=== PATIENT | male | born 1950 | race Caucasian/White ===

== ENCOUNTER → 2019-03-02 08:44 | Day surgery (SDC) | payer MEDICARE, BC ==
--- NOTE | 2019-02-25 17:43 | HP ---
PREOPERATIVE HISTORY AND PHYSICAL: DATE OF ADMISSION: 03/02/19 SURGEON: Dr. Subramanian.* (DICTATED BY OLU MELENDEZ) PROCEDURE: Left second toe amputation. CHIEF COMPLAINT: Left second toe ulceration. HISTORY OF PRESENT ILLNESS: Mr. Muller is a 68-year-old male followed by Dr. Subramanian for years for venous stasis changes in both legs with hyperkeratosis, dislocations, and poor wound healing. His left second toe has a deformity with hammering and significant with chronic edema. There is an ulceration at the tip that is unhealing with intermittent drainage and radiographs have shown erosion at the distal phalanx. Dr. Subramanian has recommended surgical intervention and the patient would like to proceed. PAST MEDICAL HISTORY: Morbid obesity, atrial fibrillation, diabetes, hypertension, hyperlipidemia, chronic venous stasis, severe sleep apnea, dilated cardiomyopathy, pulmonary hypertension, neuropathy. PAST SURGICAL HISTORY: Polypectomy, fistulectomy, sphincterotomy, and a shoulder surgery. He denies any complications with these procedures. CURRENT MEDICATIONS: 1. OneTouch Ultra Blue test strips as directed up to 4 times daily. 2. OneTouch UltraSoft lancets use daily or as directed. 3. Metformin HCl ER 500 mg 2 tabs p.o. b.i.d. 4. Glimepiride 4 mg 1 tab p.o. daily. 5. Lovaza 1 g 1 p.o. twice daily. 6. Multi For Him 50+ one tab p.o. daily. 7. Pradaxa 150 mg 1 tab p.o. b.i.d. 8. Bisoprolol fumarate 10 mg 1 tab p.o. daily. 9. Vitamin D3 50,000 units 1 by mouth twice weekly. 10. Amlodipine besylate/benazepril hydrochloride 2.5/10 mg 1 capsule p.o. daily. ALLERGIES: PENICILLIN, AUGMENTIN, and LEVAQUIN. FAMILY HISTORY: Positive for cancer, diabetes, and heart disease. SOCIAL HISTORY: He is and lives with his spouse. 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 He was a former smoker who quit in 1982 and occasionally consumes beer now and no recreational drug use. REVIEW OF SYSTEMS: Fourteen systems were reviewed today with the patient. They are negative for fevers, chills, nausea, vomiting, shortness of breath with exertion, or chest pain with exertion. They are positive for his left second toe ulceration, swelling, and hyperkeratosis. PHYSICAL EXAMINATION GENERAL: He is a morbidly obese male, seated in exam chair, in no acute distress, with appropriate affect. VITAL SIGNS: Height 70 inches, pulse 72, weight 368 pounds, blood pressure 124/ 66. HEENT: Normocephalic, atraumatic. Hearing and vision are grossly intact, with extraocular movements intact. NECK: Body habitus is limiting, but trachea appears midline. CHEST: Unlabored breathing. Lung sounds clear to auscultation. No wheezes, rales, or rhonchi noted. CARDIO: Irregular rate and rhythm. Normal S1, S2. No murmurs appreciated. ABDOMEN: Body habitus limiting. Nontender. Bowel sounds present. MUSCULOSKELETAL: Left lower extremity: Dark pigmentation of the skin with hyperkeratosis related to venous stasis with pachydermal hyperkeratotic changes. Left second toe is clawing and broken down at the tip with a non- weeping, nonerythematous classic chronic ulcer. The entire toe is swollen with some brawny chronic edema. IMAGING: Radiographs obtained previously of the second toe show destructive changes in the distal phalanx of the second toe. ASSESSMENT: Left second toe diabetic ulcer with osteomyelitis. PLAN: Left second toe amputation with Dr. Subramanian. The patient's questions were answered and he would like to proceed. The patient will continue on oral Keflex 500 mg 3 times daily. He will stop his Pradaxa 48 hours prior to procedure. He will call with questions or concerns and follow up postoperatively. OLU MELENDEZ [id number]/[facility] #: [id number] CHRISTIE
[~2019-03-02 08:44] MED LIST: Acetaminophen TAB* 325 MG ONE; Buffered Lidocaine 1% SYRIN* 1 ML/SYRINGE INTRADERM ONE; Clindamycin 900 MG/D5W BAG(*) 900 MG/50 ML BAG IVPB ONE; Lactated Ringers 1000 ML Bag* 1,000 ML IV SCH; Lidocaine 2% PF * 5 ML VIAL ONE; Lidocaine 2% PF* 10 ML AMP ONE; Midazolam* 1 MG/ML 2 ML VIAL (2 MG) ONE; Naloxone* 0.4 MG/ML 1 ML VIAL IV PRN; Propofol* 10 MG/ML 20 ML BTL ONE
[2019-03-02 13:37] VITALS: BP 125/73
--- NOTE | 2019-03-03 03:54 | OP ---
DATE OF OPERATION: 03/02/19 - SDS DATE OF : 46 SURGEON: Parker Subramanian MD GANG WORKER: Opal Martinez PA-C PRE-OP DIAGNOSIS: Chronic osteomyelitis of the tip of the left second toe. POST-OP DIAGNOSIS: Chronic osteomyelitis of the tip of the left second toe. OPERATIVE PROCEDURE: Partial amputation, left second toe. DESCRIPTION OF PROCEDURE: The patient was taken to the operating room where transverse elliptical incision was made over the mid portion of the left second toe. We dissected proximally to the PIP joint, which was then disarticulated, the toe was sent to Pathology. Because of the patient's chronic hyperkeratotic skin disease with the diabetes. It was very hard to mobilize the skin flap, so we resected a little bit more of the proximal phalanx with the microsagittal saw. We then were able to drop the tourniquet, obtain hemostasis, irrigate thoroughly and close dorsal to plantar flaps with 3-0 Monocryl deep suture and interrupted 2-0 Prolene for the skin. Compression dressing was applied. We also replaced his Unna boot on the left calf during this procedure. [id number]/[facility] #: [id number] MTDD
== END | disposition home or self-care (01) ==
LOC: OR 08:44
PROVIDERS: ATTEND Orthopaedic Surgery
DX: M86.672 Other chronic osteomyelitis, left ankle and foot (principal); E11.621 Type 2 diabetes mellitus with foot ulcer; L97.529 Non-pressure chronic ulcer of other part of left foot with unspecified severity; Z79.84 Long term (current) use of oral hypoglycemic drugs; I10 Essential (primary) hypertension; E78.5 Hyperlipidemia, unspecified; I87.8 Other specified disorders of veins; G47.33 Obstructive sleep apnea (adult) (pediatric); I42.0 Dilated cardiomyopathy; I48.91 Unspecified atrial fibrillation; I27.20 Pulmonary hypertension, unspecified; G62.9 Polyneuropathy, unspecified; Z88.0 Allergy status to penicillin; Z88.1 Allergy status to other antibiotic agents; E11.40 Type 2 diabetes mellitus with diabetic neuropathy, unspecified; I43 Cardiomyopathy in diseases classified elsewhere
CPT/HCPCS: 88305; 88311; A9270-GY; J2001; J2250; J2704

== ENCOUNTER 2020-09-09 15:58 | Inpatient (IN) ==
[2020-09-09] MEDS ORDERED: Cefepime 1 GM in NS 0.9% 50 ML 50 ML IVPB ONE (16:53)
[2020-09-09 17:07] LABS: ABS Eosinophils 0.1 10^3/ul (0-0.6); ABS Lymphocytes 0.5 10^3/ul (1.0-4.8); ABS Monocytes 0.4 10^3/ul (0-0.8); ABS Neutrophils 2.8 10^3/ul (1.5-7.7); Eosinophil % 2.5 %; Hematocrit 37 % (42-52); Hemoglobin 12.1 g/dL (14.0-18.0); Lymphocyte % 12.8 %; Mean Corpuscular HGB Conc 33 g/dL (31-36); Mean Corpuscular Hemoglobin 31 pg (27-31); Mean Corpuscular Volume 94 fL (80-94); Mean Platelet Volume 7.5 fL (7.4-10.4); Platelet Count 155 10^3/uL (150-450); Red Blood Count 3.91 10^6 /uL (4.18-5.48); Red Cell Distribution Width 17 % (10-15); White Blood Count 3.8 10^3/uL (3.5-10.8)
[2020-09-09 17:22] LABS: Albumin 2.5 g/dL (3.2-5.2); Albumin/Globulin Ratio 0.6 (1-3); BUN/Creatinine Ratio 18.3 (8-20); C Reactive Protein 49.53 mg/L (<8.01); Calcium 8.6 mg/dL (8.6-10.3); EGFR African American 85.2 (>60); EGFR Non-African American 70.4 (>60); Globulin 4.3 g/dL (2-4); Total Bilirubin 1.3 mg/dL (0.2-1.0); Total Protein 6.8 g/dL (6.4-8.9)
[2020-09-09 17:26] LABS: Potassium 5.1 mmol/L (3.5-5.0)
[2020-09-09] MEDS ORDERED: Cefepime 1 GM IV - ED ONCE IV ONE ×2 (18:00→20:26)
[2020-09-09 20:38] LABS: TSH Ultra Thyroid Stim Horm 1.08 mcIU/mL (0.34-5.60)
[2020-09-09] MEDS ORDERED: Vancomycin 2,000 MG in NS 0.9% 500 ml BAG 500 ML IVPB ONE (21:00)
[2020-09-09] MEDS ORDERED: Vancomycin per Pharmacy 1 EA NOTE FOLLOW UP SCH (21:00)
[2020-09-09] MEDS ORDERED: Furosemide 40 mg/4 ml IV VIAL IV ONE (21:28)
[2020-09-09] MEDS: CMC:Dabigatran 150 mg CAP (NF) PO SCH (22:58)
[2020-09-10] MEDS ORDERED: Calcium Carb (TUMS) 500 mg CHEW TAB PO PRN (00:42)
[2020-09-10 06:09] LABS: ABS Eosinophils 0.1 10^3/ul (0-0.6); ABS Lymphocytes 0.6 10^3/ul (1.0-4.8); ABS Monocytes 0.5 10^3/ul (0-0.8); ABS Neutrophils 2.2 10^3/ul (1.5-7.7); Eosinophil % 2.8 %; Hematocrit 35 % (42-52); Hemoglobin 11.9 g/dL (14.0-18.0); Lymphocyte % 17.7 %; Mean Corpuscular HGB Conc 34 g/dL (31-36); Mean Corpuscular Hemoglobin 32 pg (27-31); Mean Corpuscular Volume 94 fL (80-94); Mean Platelet Volume 7.7 fL (7.4-10.4); Nucleated Red Blood Cells % 0.1; Platelet Count 148 10^3/uL (150-450); Red Blood Count 3.69 10^6 /uL (4.18-5.48); Red Cell Distribution Width 17 % (10-15); White Blood Count 3.4 10^3/uL (3.5-10.8)
[2020-09-10 06:31] LABS: Albumin 2.4 g/dL (3.2-5.2); Albumin/Globulin Ratio 0.6 (1-3); BUN/Creatinine Ratio 20.4 (8-20); Calcium 8.4 mg/dL (8.6-10.3); EGFR African American 91.2 (>60); EGFR Non-African American 75.4 (>60); Globulin 4.2 g/dL (2-4); Potassium 4.6 mmol/L (3.5-5.0); Total Bilirubin 1.3 mg/dL (0.2-1.0); Total Protein 6.6 g/dL (6.4-8.9)
[2020-09-10 07:10] LABS: Activated Partial Thrombo Time 53.9 seconds (26.0-38.0); INR 2.23 (0.82-1.09)
[2020-09-10] MEDS: CMC:Dabigatran 150 mg CAP (NF) PO SCH ×2 (09:32→21:04)
[2020-09-10] MEDS: Cefepime 2 GM in Dextrose 2 GM/50 ML BAG IV SCH ×2 (09:34→21:05)
[2020-09-10] MEDS ORDERED: Vancomycin 1,250 MG in NS 0.9% 250 ml 250 ML IVPB SCH (11:00)
[2020-09-10] MEDS: Furosemide 40 mg/4 ml IV VIAL IV SCH (11:07)
[2020-09-10] MEDS: Ampicillin ADVAN 2 GM in NS 0.9% 100 ml BAG 100 ML IVPB SCH ×2 (17:36→22:05)
[2020-09-10] MEDS: metroNIDAZOLE IV 500 MG/100ML 500 MG/100 ML BAG IVPB SCH (18:16)
[2020-09-11] MEDS: metroNIDAZOLE IV 500 MG/100ML 500 MG/100 ML BAG IVPB SCH ×3 (01:30→17:30)
[2020-09-11 01:51] LABS: Urine Appearance Cloudy; Urine Bilirubin Negative (Negative); Urine Blood Negative (Negative); Urine Color Yellow; Urine Glucose Negative (Negative); Urine Ketones Negative (Negative); Urine Nitrite Negative (Negative); Urine Protein 1+(30 mg/dL) (Negative); Urine Specific Gravity 1.017 (1.002-1.030); Urine Urobilinogen Negative (Negative)
[2020-09-11 01:55] LABS: Urine Bacteria Absent (Absent); Urine Red Blood Cell Trace(0-2/hpf) (Absent); Urine White Blood Cell Absent (Absent)
[2020-09-11] MEDS: Ampicillin ADVAN 2 GM in NS 0.9% 100 ml BAG 100 ML IVPB SCH ×4 (06:02→22:43)
[2020-09-11 06:47] LABS: ABS Eosinophils 0.1 10^3/ul (0-0.6); ABS Lymphocytes 0.7 10^3/ul (1.0-4.8); ABS Monocytes 0.4 10^3/ul (0-0.8); ABS Neutrophils 2.5 10^3/ul (1.5-7.7); Eosinophil % 3.2 %; Hematocrit 36 % (42-52); Hemoglobin 11.7 g/dL (14.0-18.0); Lymphocyte % 18.5 %; Mean Corpuscular HGB Conc 33 g/dL (31-36); Mean Corpuscular Hemoglobin 31 pg (27-31); Mean Corpuscular Volume 93 fL (80-94); Mean Platelet Volume 7.8 fL (7.4-10.4); Platelet Count 139 10^3/uL (150-450); Red Blood Count 3.84 10^6 /uL (4.18-5.48); Red Cell Distribution Width 17 % (10-15); White Blood Count 3.8 10^3/uL (3.5-10.8)
[2020-09-11 07:07] LABS: BUN/Creatinine Ratio 23.8 (8-20); Calcium 8.4 mg/dL (8.6-10.3); EGFR African American 88.1 (>60); EGFR Non-African American 72.8 (>60); Magnesium 1.7 mg/dL (1.9-2.7); Potassium 4.3 mmol/L (3.5-5.0)
[2020-09-11] MEDS ORDERED: Magnesium Sulfate IV 1GM/100ML 1 GM/100 ML BAG IV ONE (08:25)
[2020-09-11] MEDS: CMC:Dabigatran 150 mg CAP (NF) PO SCH ×2 (09:25→20:42)
[2020-09-11] MEDS: Cefepime 2 GM in Dextrose 2 GM/50 ML BAG IV SCH ×2 (10:21→20:43)
[2020-09-11] MEDS ORDERED: Vancomycin Trough Check NOTE FOLLOW UP ONE (10:30)
[2020-09-11] MEDS ORDERED: Perflutren Lipid Microsphere 3 ML VIAL ONE (12:14)
[2020-09-11] MEDS: Furosemide 40 mg/4 ml IV VIAL IV SCH (13:38)
[2020-09-11] MEDS ORDERED: Dextrose 50% Syringe 50 ml 25 GM/50 ML SYRINGE IV PUSH PRN (17:22)
[2020-09-12] MEDS: metroNIDAZOLE IV 500 MG/100ML 500 MG/100 ML BAG IVPB SCH ×2 (01:17→09:28)
[2020-09-12] MEDS: Ampicillin ADVAN 2 GM in NS 0.9% 100 ml BAG 100 ML IVPB SCH ×2 (04:46→11:24)
[2020-09-12 06:12] LABS: BUN/Creatinine Ratio 25.5 (8-20); Calcium 8.2 mg/dL (8.6-10.3); EGFR African American 95.7 (>60); EGFR Non-African American 79.1 (>60); Magnesium 1.8 mg/dL (1.9-2.7); Potassium 4.2 mmol/L (3.5-5.0)
[2020-09-12] MEDS: CMC:Dabigatran 150 mg CAP (NF) PO SCH (08:47)
[2020-09-12] MEDS: Cefepime 2 GM in Dextrose 2 GM/50 ML BAG IV SCH (08:47)
[2020-09-12 11:16] LABS: C Reactive Protein 59.83 mg/L (<8.01)
[2020-09-12 11:36] VITALS: BP 120/64
== END 2020-09-12 16:20 | disposition home health service (06) | DRG 593 ==
LOC: ED 15:58 → MED 21:02
PROVIDERS: ADMIT Hospitalist; ATTEND Hospitalist

== ENCOUNTER 2020-11-18 11:37 | Inpatient (IN) ==
[2020-11-18] MEDS ORDERED: metroNIDAZOLE IV 500 MG/100ML 500 MG/100 ML BAG IVPB ONE (11:44)
[2020-11-18] MEDS ORDERED: NS 0.9% 1000 ml BAG 1,000 ML IV.FLUID IV ONE (11:44)
[2020-11-18] MEDS ORDERED: Cefepime 1 GM in NS 0.9% 50 ML 50 ML IVPB ONE (11:48)
[2020-11-18 11:59] LABS: ABS Lymphocytes 0.3 10^3/ul (1.0-4.8); ABS Neutrophils 4.6 10^3/ul (1.5-7.7); Eosinophil % 0.2 %; Hematocrit 40 % (42-52); Hemoglobin 13.4 g/dL (14.0-18.0); Lymphocyte % 6.5 %; Mean Corpuscular HGB Conc 33 g/dL (31-36); Mean Corpuscular Hemoglobin 31 pg (27-31); Mean Corpuscular Volume 93 fL (80-94); Mean Platelet Volume 7.2 fL (7.4-10.4); Nucleated Red Blood Cells % 0.1; Platelet Count 230 10^3/uL (150-450); Red Blood Count 4.37 10^6 /uL (4.18-5.48); Red Cell Distribution Width 17 % (10-15)
[2020-11-18] MEDS ORDERED: Cefepime 1 GM in Dextrose 1 GM/50 ML BAG IV ONE (12:00)
[2020-11-18] MEDS ORDERED: Vancomycin 1,000 MG in NS 0.9% 250 ml 250 ML IVPB SCH (12:00)
[2020-11-18] MEDS: NS 0.9% 1000 ml BAG 2,000 ML IV ONE ×2 (12:04→12:22)
[2020-11-18 12:14] LABS: INR 2.49 (0.82-1.09)
[2020-11-18 12:19] LABS: ALT 25 U/L (7-52); AST 46 U/L (13-39); Albumin 2.3 g/dL (3.2-5.2); Albumin/Globulin Ratio 0.5 (1-3); Alkaline Phosphatase 353 U/L (35-149); Blood Urea Nitrogen 26 mg/dL (6-24); C Reactive Protein 173.54 mg/L (<8.01); Calcium 8.5 mg/dL (8.6-10.3); Chloride 99 mmol/L (101-111); EGFR African American 58.8 (>60); EGFR Non-African American 48.6 (>60); Glucose 71 mg/dL (70-100); Potassium 4.9 mmol/L (3.5-5.0); Sodium 127 mmol/L (135-145); Total Protein 7.3 g/dL (6.4-8.9)
[2020-11-18 12:23] LABS: Anion Gap 15 mmol/L (2-11); CO2 Carbon Dioxide 13 mmol/L (22-32); Troponin I 0.06 ng/mL (<0.03)
[2020-11-18 12:57] LABS: Urine Appearance Cloudy; Urine Bilirubin Negative (Negative); Urine Blood 1+ (Negative); Urine Color Amber; Urine Glucose Negative (Negative); Urine Ketones Negative (Negative); Urine Nitrite Negative (Negative); Urine Protein 1+(30 mg/dL) (Negative); Urine Specific Gravity 1.012 (1.002-1.030); Urine Urobilinogen Negative (Negative)
[2020-11-18] MEDS ORDERED: Vancomycin 1,000 MG in NS 0.9% 250 ml 250 ML IVPB ONE (13:00)
[2020-11-18 13:14] LABS: Urine Bacteria Absent (Absent); Urine Granular Casts Present (Absent); Urine Red Blood Cell Trace(0-2/hpf) (Absent); Urine Squamous Epithelial Cell Present (Absent); Urine White Blood Cell Absent (Absent)
[2020-11-18] MEDS ORDERED: fentaNYL 100 mcg/2 ml 50 MCG/ML VIAL ONE (13:18)
[2020-11-18] MEDS ORDERED: Phenylephrine 40 mcg/mL 10mL (400mcg) SYRINGE ONE (13:27)
[2020-11-18] MEDS ORDERED: NORMOSOL-R pH 7.4 1000 mL BAG 1,000 ML IV SCH ×2 (14:00→16:00)
[2020-11-18] MEDS ORDERED: Dextrose 50% Syringe 50 ml 25 GM/50 ML SYRINGE IV PUSH PRN ×2 (14:08→17:14)
[2020-11-18] MEDS ORDERED: Digoxin IV 0.5 MG/2 ML AMP (0.25 MG/ML) IV SLOW PU ONE (14:18)
[2020-11-18] MEDS: Phenylephrine IV 50 MG in NS 0.9% 250 ml 245 ML IV SCH ×2 (15:10→19:07)
[2020-11-18] MEDS ORDERED: Hydrocortisone INJ 250 MG VIAL IV ONE (15:25)
[2020-11-18] MEDS: Acetaminophen IV 1 GM/100ML 1,000 MG/100 ML VIAL IVPB SCH ×2 (15:55→23:09)
[2020-11-18 16:14] LABS: Hematocrit 36 % (42-52); Hemoglobin 11.8 g/dL (14.0-18.0); Mean Corpuscular HGB Conc 33 g/dL (31-36); Mean Corpuscular Hemoglobin 30 pg (27-31); Mean Corpuscular Volume 92 fL (80-94); Mean Platelet Volume 7.4 fL (7.4-10.4); Platelet Count 191 10^3/uL (150-450); Red Blood Count 3.93 10^6 /uL (4.18-5.48); Red Cell Distribution Width 17 % (10-15); White Blood Count 19.8 10^3/uL (3.5-10.8)
[2020-11-18] MEDS: Norepinephrine 16MCG/ML IVPRE 4,000 MCG/250 ML BAG IV SCH ×2 (16:24→21:50)
[2020-11-18] MEDS ORDERED: Hydrocortisone INJ 100 MG/2ML 2 ML VIAL IV ONE (16:30)
[2020-11-18 16:40] LABS: Anion Gap 11 mmol/L (2-11); Blood Urea Nitrogen 25 mg/dL (6-24); CO2 Carbon Dioxide 15 mmol/L (22-32); Calcium 7.5 mg/dL (8.6-10.3); Chloride 102 mmol/L (101-111); EGFR African American 51.7 (>60); EGFR Non-African American 42.7 (>60); Glucose 58 mg/dL (70-100); Magnesium 1.4 mg/dL (1.9-2.7); Phosphorus 1.8 mg/dL (2.5-5.0); Potassium 4.2 mmol/L (3.5-5.0); Sodium 128 mmol/L (135-145)
[2020-11-18 16:41] LABS: PCO2 Arterial 30 mmHg (35-45); PO2 Arterial 135 mmHg (80-100)
[2020-11-18 16:50] LABS: Troponin I 0.07 ng/mL (<0.03)
[2020-11-18] MEDS ORDERED: Vancomycin per Pharmacy 1 EA NOTE FOLLOW UP SCH (19:00)
[2020-11-18] MEDS ORDERED: Cefepime ADVAN 1 GM in NS 0.9% 50 ML 50 ML IVPB SCH (19:30)
[2020-11-18] MEDS ORDERED: Cefepime 1 GM in Dextrose 1 GM/50 ML BAG IV SCH (19:31)
[2020-11-18] MEDS ORDERED: D5LR 1000 ml BAG 1,000 ML IV SCH (22:00)
[2020-11-18] MEDS: Hydrocortisone INJ 100 MG/2ML 2 ML VIAL IV SCH (22:19)
[2020-11-18] MEDS: CMCS: Dabigatran 150 mg CAP (NF) PO SCH (22:19)
[2020-11-18 22:43] LABS: Creatine Kinase 1726 U/L (10-223)
[2020-11-18] MEDS ORDERED: AMIKACIN IVPB ONE (23:00)
[2020-11-18] MEDS ORDERED: NS 0.9% IVPB ONE (23:00)
[2020-11-18] MEDS ORDERED: Meropenem 1 GM PREMIX 1 GM/50 ML BAG IV SCH (23:00)
[2020-11-18] MEDS ORDERED: Sodium Phosphate IV 30 MMOLE in NS 0.9% 250 ml 250 ML IVPB ONE (23:01)
[2020-11-18] MEDS ORDERED: Magnesium Sulf 4 GM/100 ML IV 4,000 MG/100 ML BAG IVPB ONE (23:01)
[2020-11-18] MEDS ORDERED: NS 0.9% 100 ml BAG 100 ML ONE (23:03)
[2020-11-18] MEDS: Linezolid 600 MG IVPREMIX(*) 600 MG/300 ML BAG IVPB SCH (23:10)
[2020-11-19] MEDS ORDERED: Vancomycin 1,250 MG in NS 0.9% 250 ml 250 ML IVPB SCH
[2020-11-19 00:05] LABS: Myoglobin 13353.2 ng/mL (17.4-105.7)
[2020-11-19] MEDS ORDERED: D5LR 1000 ml BAG 1,000 ML IV SCH (04:24)
[2020-11-19 04:37] LABS: Hematocrit 42 % (42-52); Hemoglobin 13.7 g/dL (14.0-18.0); Mean Corpuscular HGB Conc 33 g/dL (31-36); Mean Corpuscular Hemoglobin 31 pg (27-31); Mean Corpuscular Volume 94 fL (80-94); Mean Platelet Volume 7.9 fL (7.4-10.4); Platelet Count 207 10^3/uL (150-450); Red Blood Count 4.46 10^6 /uL (4.18-5.48); Red Cell Distribution Width 18 % (10-15); White Blood Count 47.3 10^3/uL (3.5-10.8)
[2020-11-19 04:55] LABS: Albumin 2.3 g/dL (3.2-5.2); Albumin/Globulin Ratio 0.4 (1-3); Calcium 7.9 mg/dL (8.6-10.3); EGFR African American 49.5 (>60); EGFR Non-African American 40.9 (>60); Globulin 5.2 g/dL (2-4); Magnesium 2.3 mg/dL (1.9-2.7); Phosphorus 6.1 mg/dL (2.5-5.0); Total Bilirubin 3.1 mg/dL (0.2-1.0); Total Protein 7.5 g/dL (6.4-8.9)
[2020-11-19 05:02] LABS: Potassium 5.1 mmol/L (3.5-5.0)
[2020-11-19 05:35] LABS: PCO2 Arterial 30 mmHg (35-45); PO2 Arterial 126 mmHg (80-100)
[2020-11-19] MEDS ORDERED: Sodium Bicarbonate 8.4% SYR 50 ml SYRINGE IV ONE (05:38)
[2020-11-19] MEDS: Hydrocortisone INJ 100 MG/2ML 2 ML VIAL IV SCH ×3 (05:54→22:35)
[2020-11-19] MEDS: Norepinephrine 16MCG/ML IVPRE 4,000 MCG/250 ML BAG IV SCH ×2 (06:17→12:41)
[2020-11-19] MEDS: Sodium Bicarb 8.4% Vial 50 ML 150 MEQ in D5W 1000 ml BAG 850 ML IV SCH ×2 (07:47→16:19)
[2020-11-19] MEDS: Acetaminophen IV 1 GM/100ML 1,000 MG/100 ML VIAL IVPB SCH (07:57)
[2020-11-19] MEDS: CMCS: Dabigatran 150 mg CAP (NF) PO SCH ×2 (07:57→22:34)
[2020-11-19] MEDS: Meropenem 1 GM PREMIX 1 GM/50 ML BAG IV SCH ×2 (07:57→15:33)
[2020-11-19] MEDS ORDERED: Metoprolol Tartrate 5 mg VIAL 5 ml VIAL (1 mg/ml) IV ONE ×2 (08:19→18:47)
[2020-11-19] MEDS: Phenylephrine IV 50 MG in NS 0.9% 250 ml 245 ML IV SCH ×2 (08:27→16:20)
[2020-11-19 08:48] LABS: Calcium 7.7 mg/dL (8.6-10.3); EGFR African American 54.8 (>60); EGFR Non-African American 45.3 (>60); Potassium 4.8 mmol/L (3.5-5.0)
[2020-11-19] MEDS: Pantoprazole VIAL 40 MG VIAL IV SCH (09:10)
[2020-11-19] MEDS: Linezolid 600 MG IVPREMIX(*) 600 MG/300 ML BAG IVPB SCH ×2 (10:46→22:36)
[2020-11-19 12:46] LABS: Venous Bicarbonate HCO3 18.1 mmol/L (24-28)
[2020-11-19 13:04] LABS: Calcium 7.6 mg/dL (8.6-10.3); EGFR African American 60.3 (>60); EGFR Non-African American 49.8 (>60); Potassium 4.4 mmol/L (3.5-5.0)
[2020-11-19 16:07] LABS: Myoglobin 975.9 ng/mL (17.4-105.7)
[2020-11-19 16:51] LABS: Calcium 7.7 mg/dL (8.6-10.3); EGFR African American 63.4 (>60); EGFR Non-African American 52.4 (>60); Potassium 4.6 mmol/L (3.5-5.0)
[2020-11-19 16:57] LABS: Myoglobin 687.8 ng/mL (17.4-105.7)
[2020-11-19] MEDS ORDERED: Digoxin IV 0.5 MG/2 ML AMP (0.25 MG/ML) IV SLOW PU ONE ×2 (18:29→18:41)
[2020-11-19] MEDS ORDERED: Dextrose 50% Syringe 50 ml 25 GM/50 ML SYRINGE IV PUSH PRN ×2 (21:34→22:30)
[2020-11-20] MEDS: Meropenem 1 GM PREMIX 1 GM/50 ML BAG IV SCH ×4 (00:26→23:10)
[2020-11-20] MEDS ORDERED: Digoxin IV 0.5 MG/2 ML AMP (0.25 MG/ML) IV SLOW PU ONE ×2 (01:00)
[2020-11-20] MEDS: Sodium Bicarb 8.4% Vial 50 ML 150 MEQ in D5W 1000 ml BAG 850 ML IV SCH ×2 (02:36→14:07)
[2020-11-20] MEDS: Phenylephrine IV 50 MG in NS 0.9% 250 ml 245 ML IV SCH ×2 (02:37→11:17)
[2020-11-20 05:53] LABS: Hematocrit 41 % (42-52); Hemoglobin 13.7 g/dL (14.0-18.0); Mean Corpuscular HGB Conc 33 g/dL (31-36); Mean Corpuscular Hemoglobin 30 pg (27-31); Mean Corpuscular Volume 91 fL (80-94); Platelet Count 146 10^3/uL (150-450); Red Blood Count 4.52 10^6 /uL (4.18-5.48); Red Cell Distribution Width 18 % (10-15); White Blood Count 35.2 10^3/uL (3.5-10.8)
[2020-11-20 05:57] LABS: INR 3.83 (0.82-1.09)
[2020-11-20] MEDS: Hydrocortisone INJ 100 MG/2ML 2 ML VIAL IV SCH ×3 (06:07→21:42)
[2020-11-20 06:14] LABS: Calcium 7.7 mg/dL (8.6-10.3); EGFR Non-African American 64.4 (>60); Phosphorus 2.9 mg/dL (2.5-5.0); Potassium 3.8 mmol/L (3.5-5.0)
[2020-11-20] MEDS: CMCS: Dabigatran 150 mg CAP (NF) PO SCH ×2 (07:55→21:42)
[2020-11-20] MEDS: Pantoprazole VIAL 40 MG VIAL IV SCH (07:55)
[2020-11-20] MEDS ORDERED: Potassium Chlor 20 meq TAB.ER PO ONE (08:09)
[2020-11-20] MEDS ORDERED: Perflutren Lipid Microsphere 3 ML VIAL ONE (09:28)
[2020-11-20 09:33] LABS: Myoglobin 231.5 ng/mL (17.4-105.7)
[2020-11-20] MEDS: Linezolid 600 MG IVPREMIX(*) 600 MG/300 ML BAG IVPB SCH ×2 (11:17→21:42)
[2020-11-20] MEDS ORDERED: Vancomycin Trough Check NOTE FOLLOW UP ONE (11:30)
[2020-11-20] MEDS: Calcium Carb (TUMS) 500 mg CHEW TAB PO PRN ×2 (11:43→23:10)
[2020-11-20 12:22] LABS: Venous Bicarbonate HCO3 24.3 mmol/L (24-28)
[2020-11-20 17:36] LABS: Calcium 7.2 mg/dL (8.6-10.3); Magnesium 1.9 mg/dL (1.9-2.7); Potassium 4.2 mmol/L (3.5-5.0)
[2020-11-20 17:42] LABS: Digoxin 1.1 ng/ml (0.8-2.0); EGFR African American 94.3 (>60); EGFR Non-African American 77.9 (>60); Phosphorus 2.2 mg/dL (2.5-5.0)
[2020-11-21] MEDS: Phenylephrine IV 50 MG in NS 0.9% 250 ml 245 ML IV SCH (03:21)
[2020-11-21 05:15] LABS: Hematocrit 40 % (42-52); Hemoglobin 13.2 g/dL (14.0-18.0); Mean Corpuscular HGB Conc 33 g/dL (31-36); Mean Corpuscular Hemoglobin 30 pg (27-31); Mean Corpuscular Volume 92 fL (80-94); Mean Platelet Volume 7.7 fL (7.4-10.4); Platelet Count 127 10^3/uL (150-450); Red Blood Count 4.36 10^6 /uL (4.18-5.48); Red Cell Distribution Width 18 % (10-15); White Blood Count 23.5 10^3/uL (3.5-10.8)
[2020-11-21 05:29] LABS: INR 2.74 (0.82-1.09)
[2020-11-21 05:40] LABS: Calcium 7.7 mg/dL (8.6-10.3); EGFR Non-African American 85.1 (>60); Magnesium 1.9 mg/dL (1.9-2.7); Potassium 4.5 mmol/L (3.5-5.0)
[2020-11-21] MEDS: Hydrocortisone INJ 100 MG/2ML 2 ML VIAL IV SCH ×3 (06:48→21:29)
[2020-11-21] MEDS ORDERED: Potassium Phosphate IV 15 MMOLE in NS 0.9% 250 ml 250 ML IVPB ONE (08:00)
[2020-11-21] MEDS: Meropenem 1 GM PREMIX 1 GM/50 ML BAG IV SCH (09:07)
[2020-11-21] MEDS: Pantoprazole VIAL 40 MG VIAL IV SCH (09:23)
[2020-11-21] MEDS: CMCS: Dabigatran 150 mg CAP (NF) PO SCH ×2 (09:23→21:28)
[2020-11-21 11:49] LABS: TSH Ultra Thyroid Stim Horm 0.27 mcIU/mL (0.34-5.60)
[2020-11-21] MEDS: Linezolid 600 MG IVPREMIX(*) 600 MG/300 ML BAG IVPB SCH ×2 (11:50→23:07)
[2020-11-21 15:22] LABS: Free T4 0.79 ng/dL (0.61-1.12)
[2020-11-21] MEDS ORDERED: Furosemide 40 mg/4 ml IV VIAL IV SLOW PU ONE (18:11)
[2020-11-22 05:34] LABS: Hematocrit 39 % (42-52); Hemoglobin 12.7 g/dL (14.0-18.0); Mean Corpuscular HGB Conc 33 g/dL (31-36); Mean Corpuscular Hemoglobin 30 pg (27-31); Mean Corpuscular Volume 92 fL (80-94); Platelet Count 112 10^3/uL (150-450); Red Blood Count 4.22 10^6 /uL (4.18-5.48); Red Cell Distribution Width 18 % (10-15)
[2020-11-22 05:48] LABS: INR 2.42 (0.82-1.09)
[2020-11-22 05:50] LABS: Calcium 7.6 mg/dL (8.6-10.3); EGFR African American 76.4 (>60); EGFR Non-African American 63.1 (>60); Magnesium 1.8 mg/dL (1.9-2.7); Phosphorus 2.6 mg/dL (2.5-5.0); Potassium 4.7 mmol/L (3.5-5.0)
[2020-11-22] MEDS: Hydrocortisone INJ 100 MG/2ML 2 ML VIAL IV SCH ×2 (07:20→13:15)
[2020-11-22] MEDS ORDERED: Flumazenil 0.5 mg/5 ml 0.1 MG/ML 5 ml VIAL ONE (08:23)
[2020-11-22] MEDS ORDERED: Midazolam 5 mg/5 ml VIAL 1 mg/ml 5 ml VIAL (5 mg) ONE (08:23)
[2020-11-22] MEDS ORDERED: Naloxone 0.4 mg VIAL 0.4 mg/ml 1 ml VIAL ONE (08:23)
[2020-11-22] MEDS ORDERED: fentaNYL 100 mcg/2 ml 50 MCG/ML VIAL ONE (08:23)
[2020-11-22] MEDS ORDERED: Magnesium Sulfate 2 gm BAG 2 GM/50 ML BAG IVPB ONE (09:19)
[2020-11-22 09:39] LABS: Albumin 1.8 g/dL (3.2-5.2); Albumin/Globulin Ratio 0.4 (1-3); Globulin 4.1 g/dL (2-4); Indirect Bilirubin 0.7 mg/dL (0.3-1.0); Total Bilirubin 1.7 mg/dL (0.2-1.0); Total Protein 5.9 g/dL (6.4-8.9)
[2020-11-22] MEDS: Pantoprazole VIAL 40 MG VIAL IV SCH (10:09)
[2020-11-22] MEDS: Linezolid 600 MG IVPREMIX(*) 600 MG/300 ML BAG IVPB SCH (11:24)
[2020-11-22] MEDS: CMCS: Dabigatran 150 mg CAP (NF) PO SCH ×2 (11:41→21:06)
[2020-11-22] MEDS ORDERED: Hydrocortisone INJ 100 MG/2ML 2 ML VIAL IV SCH (21:00)
[2020-11-22] MEDS: Calcium Carb (TUMS) 500 mg CHEW TAB PO PRN (21:39)
[2020-11-23] MEDS: Linezolid 600 MG IVPREMIX(*) 600 MG/300 ML BAG IVPB SCH ×3 (00:06→22:57)
[2020-11-23 07:39] LABS: Hematocrit 42 % (42-52); Hemoglobin 13.9 g/dL (14.0-18.0); Mean Corpuscular HGB Conc 33 g/dL (31-36); Mean Corpuscular Hemoglobin 31 pg (27-31); Mean Corpuscular Volume 92 fL (80-94); Mean Platelet Volume 7.8 fL (7.4-10.4); Platelet Count 116 10^3/uL (150-450); Red Blood Count 4.55 10^6 /uL (4.18-5.48); Red Cell Distribution Width 18 % (10-15); White Blood Count 7.6 10^3/uL (3.5-10.8)
[2020-11-23 07:41] LABS: INR 2.16 (0.86-1.15)
[2020-11-23 07:54] LABS: Calcium 8.1 mg/dL (8.6-10.3); EGFR African American 62.3 (>60); EGFR Non-African American 51.5 (>60); Magnesium 2.2 mg/dL (1.9-2.7); Phosphorus 3.4 mg/dL (2.5-5.0); Potassium 4.6 mmol/L (3.5-5.0)
[2020-11-23] MEDS: Pantoprazole VIAL 40 MG VIAL IV SCH (08:33)
[2020-11-23] MEDS: Hydrocortisone INJ 100 MG/2ML 2 ML VIAL IV SCH ×2 (08:33→22:57)
[2020-11-23] MEDS: CMCS: Dabigatran 150 mg CAP (NF) PO SCH ×2 (08:38→22:56)
[2020-11-23] MEDS ORDERED: Hydrocortisone INJ 100 MG/2ML 2 ML VIAL IV ONE (09:00)
[2020-11-24 07:20] LABS: Hematocrit 38 % (42-52); Hemoglobin 12.4 g/dL (14.0-18.0); Mean Corpuscular HGB Conc 33 g/dL (31-36); Mean Corpuscular Hemoglobin 30 pg (27-31); Mean Corpuscular Volume 92 fL (80-94); Mean Platelet Volume 7.8 fL (7.4-10.4); Platelet Count 89 10^3/uL (150-450); Red Cell Distribution Width 18 % (10-15); White Blood Count 5.4 10^3/uL (3.5-10.8)
[2020-11-24 07:28] LABS: Albumin 1.9 g/dL (3.2-5.2); Albumin/Globulin Ratio 0.5 (1-3); Calcium 7.9 mg/dL (8.6-10.3); Direct Bilirubin 0.9 mg/dL (0.03-0.18); EGFR African American 72.7 (>60); EGFR Non-African American 60.1 (>60); Globulin 4.2 g/dL (2-4); Indirect Bilirubin 1.1 mg/dL (0.3-1.0); Magnesium 1.9 mg/dL (1.9-2.7); Phosphorus 3.5 mg/dL (2.5-5.0); Total Protein 6.1 g/dL (6.4-8.9)
[2020-11-24] MEDS: CMCS: Dabigatran 150 mg CAP (NF) PO SCH ×2 (10:19→20:43)
[2020-11-24] MEDS: Hydrocortisone INJ 100 MG/2ML 2 ML VIAL IV SCH (10:19)
[2020-11-24] MEDS: Linezolid 600 MG IVPREMIX(*) 600 MG/300 ML BAG IVPB SCH ×2 (10:19→22:40)
[2020-11-24] MEDS ORDERED: NS 0.9% 1000 ml BAG 1,000 ML IV SCH ×2 (16:30→17:03)
[2020-11-25 06:41] LABS: Hematocrit 38 % (42-52); Hemoglobin 12.8 g/dL (14.0-18.0); Mean Corpuscular HGB Conc 34 g/dL (31-36); Mean Corpuscular Hemoglobin 31 pg (27-31); Mean Corpuscular Volume 91 fL (80-94); Mean Platelet Volume 7.5 fL (7.4-10.4); Platelet Count 76 10^3/uL (150-450); Red Blood Count 4.17 10^6 /uL (4.18-5.48); Red Cell Distribution Width 18 % (10-15); White Blood Count 3.9 10^3/uL (3.5-10.8)
[2020-11-25 07:06] LABS: Calcium 7.8 mg/dL (8.6-10.3); EGFR African American 83.1 (>60); EGFR Non-African American 68.7 (>60); Potassium 4.6 mmol/L (3.5-5.0)
[2020-11-25] MEDS: CMCS: Dabigatran 150 mg CAP (NF) PO SCH ×2 (09:35→23:05)
[2020-11-25] MEDS: Linezolid 600 MG IVPREMIX(*) 600 MG/300 ML BAG IVPB SCH (12:47)
[2020-11-25] MEDS: cefTRIAXone 2 GM ADDV.VIAL 2 GM in NS 0.9% 100 ml BAG 100 ML IV SCH (13:01)
[2020-11-26 05:09] LABS: Hematocrit 38 % (42-52); Hemoglobin 12.4 g/dL (14.0-18.0); Mean Corpuscular HGB Conc 33 g/dL (31-36); Mean Corpuscular Hemoglobin 30 pg (27-31); Mean Corpuscular Volume 92 fL (80-94); Mean Platelet Volume 7.4 fL (7.4-10.4); Platelet Count 64 10^3/uL (150-450); Red Cell Distribution Width 18 % (10-15); White Blood Count 3.6 10^3/uL (3.5-10.8)
[2020-11-26 05:27] LABS: Calcium 7.7 mg/dL (8.6-10.3); EGFR African American 101.7 (>60); Potassium 4.5 mmol/L (3.5-5.0)
[2020-11-26] MEDS ORDERED: NS 0.9% 1000 ml BAG 1,000 ML IV SCH (05:45)
[2020-11-26] MEDS: CMCS: Dabigatran 150 mg CAP (NF) PO SCH ×2 (09:34→22:07)
[2020-11-26] MEDS ORDERED: NS 0.9% 500 ml BAG 500 ML IV ONE (11:51)
[2020-11-26] MEDS: cefTRIAXone 2 GM ADDV.VIAL 2 GM in NS 0.9% 100 ml BAG 100 ML IV SCH (13:16)
[2020-11-26] MEDS: Calcium Carb (TUMS) 500 mg CHEW TAB PO PRN (23:11)
[2020-11-27 06:46] LABS: Calcium 7.8 mg/dL (8.6-10.3); EGFR African American 100.4 (>60); EGFR Non-African American 82.9 (>60); Potassium 4.6 mmol/L (3.5-5.0)
[2020-11-27 06:50] LABS: ABS Eosinophils 0.1 10^3/ul (0-0.6); ABS Lymphocytes 0.9 10^3/ul (1.0-4.8); ABS Monocytes 0.3 10^3/ul (0-0.8); ABS Neutrophils 4.4 10^3/ul (1.5-7.7); Eosinophil % 2.1 %; Hematocrit 39 % (42-52); Lymphocyte % 15.8 %; Mean Corpuscular HGB Conc 33 g/dL (31-36); Mean Corpuscular Hemoglobin 30 pg (27-31); Mean Corpuscular Volume 91 fL (80-94); Mean Platelet Volume 7.8 fL (7.4-10.4); Nucleated Red Blood Cells % 0.2; Platelet Count 80 10^3/uL (150-450); Red Cell Distribution Width 18 % (10-15); White Blood Count 5.7 10^3/uL (3.5-10.8)
[2020-11-27] MEDS: CMCS: Dabigatran 150 mg CAP (NF) PO SCH ×2 (08:39→20:30)
[2020-11-27] MEDS: cefTRIAXone 2 GM ADDV.VIAL 2 GM in NS 0.9% 100 ml BAG 100 ML IV SCH (12:15)
[2020-11-28 06:03] LABS: ABS Eosinophils 0.1 10^3/ul (0-0.6); ABS Lymphocytes 0.7 10^3/ul (1.0-4.8); ABS Monocytes 0.4 10^3/ul (0-0.8); ABS Neutrophils 3.5 10^3/ul (1.5-7.7); Eosinophil % 1.9 %; Hematocrit 34 % (42-52); Hemoglobin 11.5 g/dL (14.0-18.0); Lymphocyte % 15.7 %; Mean Corpuscular HGB Conc 34 g/dL (31-36); Mean Corpuscular Hemoglobin 31 pg (27-31); Mean Corpuscular Volume 91 fL (80-94); Mean Platelet Volume 7.8 fL (7.4-10.4); Nucleated Red Blood Cells % 0.1; Platelet Count 56 10^3/uL (150-450); Red Blood Count 3.77 10^6 /uL (4.18-5.48); Red Cell Distribution Width 17 % (10-15); White Blood Count 4.7 10^3/uL (3.5-10.8)
[2020-11-28] MEDS: CMCS: Dabigatran 150 mg CAP (NF) PO SCH ×2 (09:04→21:00)
[2020-11-28] MEDS: cefTRIAXone 2 GM ADDV.VIAL 2 GM in NS 0.9% 100 ml BAG 100 ML IV SCH (13:47)
[2020-11-29] MEDS: Calcium Carb (TUMS) 500 mg CHEW TAB PO PRN (03:49)
[2020-11-29 06:19] LABS: Hematocrit 33 % (42-52); Hemoglobin 11.3 g/dL (14.0-18.0); Mean Corpuscular HGB Conc 34 g/dL (31-36); Mean Corpuscular Hemoglobin 31 pg (27-31); Mean Corpuscular Volume 90 fL (80-94); Mean Platelet Volume 8.2 fL (7.4-10.4); Platelet Count 61 10^3/uL (150-450); Red Blood Count 3.67 10^6 /uL (4.18-5.48); Red Cell Distribution Width 18 % (10-15); White Blood Count 4.4 10^3/uL (3.5-10.8)
[2020-11-29 06:32] LABS: Calcium 7.7 mg/dL (8.6-10.3); EGFR Non-African American 100.8 (>60); Potassium 4.3 mmol/L (3.5-5.0)
[2020-11-29] MEDS: CMCS: Dabigatran 150 mg CAP (NF) PO SCH ×2 (07:22→21:43)
[2020-11-29 12:14] LABS: C Reactive Protein 58.11 mg/L (<8.01)
[2020-11-29] MEDS: cefTRIAXone 2 GM ADDV.VIAL 2 GM in NS 0.9% 100 ml BAG 100 ML IV SCH (13:35)
[2020-11-29] MEDS: Lidocaine 2% JELLY 6 ML TOPICAL SCH ×3 (13:36→23:55)
[2020-11-30 06:16] LABS: Hematocrit 33 % (42-52); Hemoglobin 11.2 g/dL (14.0-18.0); Mean Corpuscular HGB Conc 34 g/dL (31-36); Mean Corpuscular Hemoglobin 31 pg (27-31); Mean Corpuscular Volume 91 fL (80-94); Platelet Count 79 10^3/uL (150-450); Red Blood Count 3.63 10^6 /uL (4.18-5.48); Red Cell Distribution Width 18 % (10-15); White Blood Count 4.8 10^3/uL (3.5-10.8)
[2020-11-30] MEDS: Lidocaine 2% JELLY 6 ML TOPICAL SCH ×2 (08:54→14:13)
[2020-11-30] MEDS: CMCS: Dabigatran 150 mg CAP (NF) PO SCH (08:54)
[2020-11-30] MEDS: cefTRIAXone 2 GM ADDV.VIAL 2 GM in NS 0.9% 100 ml BAG 100 ML IV SCH (13:20)
[2020-11-30 16:00] VITALS: BP 124/49
== END 2020-11-30 17:15 | disposition home or self-care (01) | DRG 871 ==
LOC: ED 11:37 → ICU 13:53 → MED 11-22 15:41
PROVIDERS: ADMIT Internal Medicine; ATTEND Internal Medicine

== ENCOUNTER 2020-12-01 11:42 | Observation (INO) ==
[2020-12-01] MEDS ORDERED: cefTRIAXone 2 GM ADDV.VIAL 2 GM in NS 0.9% 100 ml BAG 100 ML IVPB ONE (12:08)
[2020-12-01] MEDS ORDERED: NS 0.9% 1000 ml BAG 1,000 ML IV ONE (12:08)
[2020-12-01] MEDS ORDERED: Digoxin IV 0.5 MG/2 ML AMP (0.25 MG/ML) IV SLOW PU ONE (12:09)
[2020-12-01 13:04] LABS: ABS Lymphocytes 0.8 10^3/ul (1.0-4.8); ABS Monocytes 0.8 10^3/ul (0-0.8); ABS Neutrophils 4.5 10^3/ul (1.5-7.7); Hematocrit 31 % (42-52); Hemoglobin 10.3 g/dL (14.0-18.0); Mean Corpuscular HGB Conc 33 g/dL (31-36); Mean Corpuscular Hemoglobin 30 pg (27-31); Mean Corpuscular Volume 90 fL (80-94); Mean Platelet Volume 7.6 fL (7.4-10.4); Platelet Count 104 10^3/uL (150-450); Red Blood Count 3.42 10^6 /uL (4.18-5.48); Red Cell Distribution Width 17 % (10-15); White Blood Count 6.1 10^3/uL (3.5-10.8)
[2020-12-01 13:05] LABS: Eosinophil % 0.5 %; Lymphocyte % 12.4 %; Nucleated Red Blood Cells % 0.1
[2020-12-01 13:22] LABS: Albumin 1.9 g/dL (3.2-5.2); Albumin/Globulin Ratio 0.5 (1-3); Calcium 7.7 mg/dL (8.6-10.3); EGFR African American 113.3 (>60); EGFR Non-African American 93.7 (>60); Globulin 3.5 g/dL (2-4); Potassium 4.1 mmol/L (3.5-5.0); Total Bilirubin 2.7 mg/dL (0.2-1.0); Total Protein 5.4 g/dL (6.4-8.9)
[2020-12-01] MEDS ORDERED: Metoprolol Tartrate 5 mg VIAL 5 ml VIAL (1 mg/ml) IV ONE (20:01)
[2020-12-01] MEDS: CMCS: Dabigatran 150 mg CAP (NF) PO SCH (22:09)
[2020-12-02 05:53] LABS: ABS Eosinophils 0.1 10^3/ul (0-0.6); ABS Lymphocytes 0.9 10^3/ul (1.0-4.8); ABS Monocytes 0.7 10^3/ul (0-0.8); Eosinophil % 1.4 %; Hematocrit 31 % (42-52); Hemoglobin 10.6 g/dL (14.0-18.0); Lymphocyte % 16.2 %; Mean Corpuscular HGB Conc 35 g/dL (31-36); Mean Corpuscular Hemoglobin 31 pg (27-31); Mean Corpuscular Volume 90 fL (80-94); Nucleated Red Blood Cells % 0.1; Platelet Count 127 10^3/uL (150-450); Red Blood Count 3.41 10^6 /uL (4.18-5.48); Red Cell Distribution Width 18 % (10-15); White Blood Count 5.7 10^3/uL (3.5-10.8)
[2020-12-02 06:25] LABS: Calcium 7.8 mg/dL (8.6-10.3)
[2020-12-02] MEDS: CMCS: Dabigatran 150 mg CAP (NF) PO SCH (07:43)
[2020-12-02] MEDS ORDERED: Collagenase 250 units/gm OINT 1 tube TOPICAL SCH (09:00)
[2020-12-02] MEDS ORDERED: GENTAMICIN 0.1% TOPICAL SCH (09:00)
[2020-12-02] MEDS ORDERED: Cholecalciferol (VIT D3) 1,000 unit TAB PO SCH (09:00)
[2020-12-02] MEDS ORDERED: Lidocaine 2% JELLY 5 ML TUBE LIDO2GEL7 TOPICAL PRN (10:33)
[2020-12-02 13:47] VITALS: BP 100/51
[2020-12-02] MEDS ORDERED: cefTRIAXone 2 GM ADDV.VIAL 2 GM in NS 0.9% 100 ml BAG 100 ML IV SCH (14:30)
== END 2020-12-02 13:51 | disposition swing bed (61) ==
LOC: ED 11:42 → MED 11:42
PROVIDERS: ADMIT Internal Medicine; ATTEND Internal Medicine

== ENCOUNTER 2020-12-02 14:16 | Inpatient (IN) ==
[2020-12-02] MEDS ORDERED: Ondansetron 4 mg VIAL 2 MG/ML 2 ml VIAL IV PRN (14:44)
[2020-12-02] MEDS ORDERED: Cholecalciferol (VIT D3) 1,000 unit TAB PO SCH (15:00)
[2020-12-02] MEDS ORDERED: CEFTRIAXONE 2 GM IV SCH (15:00)
[2020-12-02] MEDS: Dabigatran 150 mg CAP (NF) PO SCH (21:44)
[2020-12-03] MEDS: Lidocaine 2% JELLY 5 ML TUBE LIDO2GEL7 TOPICAL PRN ×2 (00:47→05:29)
[2020-12-03] MEDS: Dabigatran 150 mg CAP (NF) PO SCH ×2 (08:07→20:50)
[2020-12-03] MEDS ORDERED: Gentamicin 0.1% OINTMENT 15 GM TUBE TOPICAL SCH (09:00)
[2020-12-03] MEDS: Collagenase 250 units/gm OINT 1 tube TOPICAL SCH (12:13)
[2020-12-03] MEDS ORDERED: Calcium Carb (TUMS) 500 mg CHEW TAB PO ONE (23:36)
[2020-12-04] MEDS: Lidocaine 2% JELLY 5 ML TUBE LIDO2GEL7 TOPICAL PRN (03:37)
[2020-12-04] MEDS: Dabigatran 150 mg CAP (NF) PO SCH ×2 (07:30→20:30)
[2020-12-04] MEDS: Collagenase 250 units/gm OINT 1 tube TOPICAL SCH ×2 (07:30→17:00)
[2020-12-05] MEDS: Collagenase 250 units/gm OINT 1 tube TOPICAL SCH ×2 (06:05→09:50)
[2020-12-05] MEDS: Dabigatran 150 mg CAP (NF) PO SCH (09:52)
[2020-12-05 12:10] VITALS: BP 147/55
== END 2020-12-05 14:54 | DRG 872 ==
LOC: MED 14:44
PROVIDERS: ADMIT Internal Medicine; ATTEND Pediatrics